=== PATIENT | male | born 1995 | race Caucasian/White ===

== ENCOUNTER 2021-06-22 13:37 | Inpatient (IN) | payer OTHER ==
[2021-06-22] MEDS ORDERED: MENTHOL/PHENOL 1 EACH UD MM PRN (16:11)
[2021-06-22] MEDS ORDERED: BISMUTH SUBSALICYLATE 524 MG/30 ML PO PRN (16:11)
[2021-06-22] MEDS ORDERED: MAG HYDROX/AL HYDROX/SIMETH 30 ML UNIT-DOSE CUP PO PRN (16:11)
[2021-06-22] MEDS ORDERED: NICOTINE 10 MG CARTRIDGE (INHALER) IH PRN (16:11)
[2021-06-22] MEDS ORDERED: MAGNESIUM HYDROX 2400MG/30ML ORAL SUSPENSION 30 ML CUP PO PRN (16:11)
[2021-06-22] MEDS ORDERED: IBUPROFEN 400 MG TABLET (FP) PO PRN (16:11)
[2021-06-22] MEDS ORDERED: MAGNESIUM CITRATE 300 ML BOTTLE PO PRN (16:11)
[2021-06-22] MEDS ORDERED: ONDANSETRON *ODT* 4 MG TABLET SL PRN (16:11)
[2021-06-22] MEDS ORDERED: ACETAMINOPHEN 325 MG TABLET (FP) PO PRN (16:11)
[2021-06-22] MEDS: PRENATAL VITAMINS W/ FOLIC ACID TABLET (FP) PO SCH (18:46)
[2021-06-22] MEDS: hydrOXYzine PAMOATE 25 MG CAPSULE (FP) PO SCH ×2 (18:46→23:25)
[2021-06-22] MEDS: NICOTINE 14 MG/24 HOURS TOPICAL PATCH TD SCH (18:47)
[2021-06-22] MEDS: MELATONIN 5 MG TABLETS PO SCH (23:24)
[2021-06-22] MEDS: THIAMINE HCL 100 MG TABLET (FP) PO SCH (23:25)
[2021-06-23] MEDS: hydrOXYzine PAMOATE 25 MG CAPSULE (FP) PO SCH ×6 (06:22→22:33)
[2021-06-23] MEDS: methaDONE HCL 40 MG DISPERSABLE TABLET PO SCH (10:00)
[2021-06-23] MEDS: PRENATAL VITAMINS W/ FOLIC ACID TABLET (FP) PO SCH (10:01)
[2021-06-23] MEDS: METOPROLOL TARTRATE 25 MG TABLET (FP) PO SCH (10:01)
[2021-06-23] MEDS: diazePAM 5 MG TABLET PO SCH ×3 (10:01→22:32)
[2021-06-23] MEDS: NICOTINE 14 MG/24 HOURS TOPICAL PATCH TD SCH (10:04)
[2021-06-23 12:35] LABS: ALBUMIN 3.8 g/dl (3.4-5.0); BLOOD UREA NITROGEN 13.5 mg/dL (7-18); CALCIUM 9.1 mg/dL (8.5-10.1)
[2021-06-23 12:36] LABS: HEMATOCRIT 37.5 % (35.4-49); HEMOGLOBIN 12.8 GM/dL (11.7-16.9); MCH 30.2 pg (25.7-33.7); MCHC 34.2 g/dl (32.0-35.9); MEAN CELL VOLUME 88.6 fl (80-96); MEAN PLT VOLUME 8.4 fl (7.5-11.1); PLATELET COUNT 274 10^3/uL (134-434); RBC 4.24 M/mm3 (4.00-5.60); RDW 14.1 % (11.9-15.9); WHITE BLOOD COUNT 8.6 K/mm3 (4.0-10.0)
[2021-06-23 12:38] LABS: CREATININE 0.9 mg/dL (0.55-1.3)
[2021-06-23 12:39] LABS: BILIRUBIN,TOTAL 0.4 mg/dL (0.2-1); TOT PROT 7.1 g/dl (6.4-8.2)
[2021-06-23] MEDS: LISINOPRIL 20 MG TABLET PO SCH (13:03)
[2021-06-23] MEDS: FLUoxetine HCL 20 MG CAPSULE PO SCH (13:03)
[2021-06-23 13:27] LABS: HIV INTERPRETATION NEGATIVE (NEGATIVE)
[2021-06-23] MEDS ORDERED: EMTRICITABINE 200MG/TENOFOVIR 300MG PO SCH (19:15)
[2021-06-23] MEDS: METHOCARBAMOL 500 MG TABLET PO PRN (22:33)
[2021-06-23] MEDS: MELATONIN 5 MG TABLETS PO SCH (22:33)
[2021-06-23] MEDS: THIAMINE HCL 100 MG TABLET (FP) PO SCH (22:33)
[2021-06-23] MEDS: EMTRICITABINE/TENOFOV ALAFENAM (DESCOVY) TABLET PO SCH (23:41)
[2021-06-24] MEDS: diazePAM 5 MG TABLET PO SCH ×4 (05:19→22:32)
[2021-06-24] MEDS: methaDONE HCL 40 MG DISPERSABLE TABLET PO SCH (05:20)
[2021-06-24] MEDS: hydrOXYzine PAMOATE 25 MG CAPSULE (FP) PO SCH ×5 (05:22→22:32)
[2021-06-24] MEDS: METOPROLOL TARTRATE 25 MG TABLET (FP) PO SCH (10:14)
[2021-06-24] MEDS: EMTRICITABINE/TENOFOV ALAFENAM (DESCOVY) TABLET PO SCH (10:14)
[2021-06-24] MEDS: PRENATAL VITAMINS W/ FOLIC ACID TABLET (FP) PO SCH (10:15)
[2021-06-24] MEDS: LISINOPRIL 20 MG TABLET PO SCH (10:15)
[2021-06-24] MEDS: NICOTINE 14 MG/24 HOURS TOPICAL PATCH TD SCH (10:15)
[2021-06-24] MEDS: FLUoxetine HCL 20 MG CAPSULE PO SCH (10:15)
[2021-06-24] MEDS: MELATONIN 5 MG TABLETS PO SCH (22:32)
[2021-06-24] MEDS: THIAMINE HCL 100 MG TABLET (FP) PO SCH (22:32)
[2021-06-25] MEDS: diazePAM 5 MG TABLET PO SCH ×3 (05:17→22:34)
[2021-06-25] MEDS: hydrOXYzine PAMOATE 25 MG CAPSULE (FP) PO SCH ×6 (05:17→22:34)
[2021-06-25] MEDS: methaDONE HCL 40 MG DISPERSABLE TABLET PO SCH (05:18)
[2021-06-25] MEDS: FLUoxetine HCL 20 MG CAPSULE PO SCH (10:25)
[2021-06-25] MEDS: LISINOPRIL 20 MG TABLET PO SCH (10:25)
[2021-06-25] MEDS: METOPROLOL TARTRATE 25 MG TABLET (FP) PO SCH (10:25)
[2021-06-25] MEDS: EMTRICITABINE/TENOFOV ALAFENAM (DESCOVY) TABLET PO SCH (10:25)
[2021-06-25] MEDS: NICOTINE 14 MG/24 HOURS TOPICAL PATCH TD SCH (10:26)
[2021-06-25] MEDS: diazePAM 5 MG TABLET PO PRN ×2 (10:26→18:40)
[2021-06-25] MEDS: PRENATAL VITAMINS W/ FOLIC ACID TABLET (FP) PO SCH (10:26)
[2021-06-25] MEDS: THIAMINE HCL 100 MG TABLET (FP) PO SCH (22:34)
[2021-06-25] MEDS: MELATONIN 5 MG TABLETS PO SCH (22:34)
[2021-06-26] MEDS: methaDONE HCL 40 MG DISPERSABLE TABLET PO SCH (05:37)
[2021-06-26] MEDS: diazePAM 5 MG TABLET PO SCH ×2 (05:39→18:16)
[2021-06-26] MEDS: hydrOXYzine PAMOATE 25 MG CAPSULE (FP) PO SCH ×6 (07:21→23:13)
[2021-06-26] MEDS: EMTRICITABINE/TENOFOV ALAFENAM (DESCOVY) TABLET PO SCH (10:05)
[2021-06-26] MEDS: PRENATAL VITAMINS W/ FOLIC ACID TABLET (FP) PO SCH (10:06)
[2021-06-26] MEDS: NICOTINE 14 MG/24 HOURS TOPICAL PATCH TD SCH (10:06)
[2021-06-26] MEDS: METOPROLOL TARTRATE 25 MG TABLET (FP) PO SCH (10:06)
[2021-06-26] MEDS: LISINOPRIL 20 MG TABLET PO SCH (10:07)
[2021-06-26] MEDS: FLUoxetine HCL 20 MG CAPSULE PO SCH (10:08)
[2021-06-26] MEDS: ACETAMINOPHEN 325 MG TABLET (FP) PO PRN (15:19)
[2021-06-26] MEDS: METHOCARBAMOL 500 MG TABLET PO PRN (18:15)
[2021-06-26] MEDS: THIAMINE HCL 100 MG TABLET (FP) PO SCH (22:30)
[2021-06-26] MEDS: MELATONIN 5 MG TABLETS PO SCH ×2 (22:30→23:15)
[2021-06-27] MEDS: methaDONE HCL 40 MG DISPERSABLE TABLET PO SCH (05:44)
[2021-06-27] MEDS: hydrOXYzine PAMOATE 25 MG CAPSULE (FP) PO SCH ×2 (05:45→10:23)
[2021-06-27] MEDS ORDERED: diazePAM 5 MG TABLET PO ONE (06:00)
[2021-06-27 08:52] VITALS: BP 123/71; PULSE 77; TEMP 96.8
[2021-06-27] MEDS: NICOTINE 14 MG/24 HOURS TOPICAL PATCH TD SCH (10:22)
[2021-06-27] MEDS: PRENATAL VITAMINS W/ FOLIC ACID TABLET (FP) PO SCH (10:22)
[2021-06-27] MEDS: METOPROLOL TARTRATE 25 MG TABLET (FP) PO SCH (10:22)
[2021-06-27] MEDS: LISINOPRIL 20 MG TABLET PO SCH (10:23)
[2021-06-27] MEDS: METHOCARBAMOL 500 MG TABLET PO PRN (10:23)
[2021-06-27] MEDS: FLUoxetine HCL 20 MG CAPSULE PO SCH (10:23)
[2021-06-27] MEDS: EMTRICITABINE/TENOFOV ALAFENAM (DESCOVY) TABLET PO SCH (10:24)
[2021-06-27] MEDS: ACETAMINOPHEN 325 MG TABLET (FP) PO PRN (10:45)
== END 2021-06-27 11:38 | disposition other institution (70) | DRG 773 ==
LOC: YASAS 13:37 → Y3N 17:33
PROVIDERS: ADMIT Allergy & Immunology; ATTEND Allergy & Immunology
PROC: HZ2ZZZZ Detoxification Services for Substance Abuse Treatment (ICD-10-PCS; principal; 2021-06-22)
DX: F10.230 Alcohol dependence with withdrawal, uncomplicated (principal); F11.20 Opioid dependence, uncomplicated; F14.20 Cocaine dependence, uncomplicated; F13.20 Sedative, hypnotic or anxiolytic dependence, uncomplicated; F17.210 Nicotine dependence, cigarettes, uncomplicated; F19.24 Other psychoactive substance dependence with psychoactive substance-induced mood disorder; F41.9 Anxiety disorder, unspecified; F32.9 Major depressive disorder, single episode, unspecified; F90.9 Attention-deficit hyperactivity disorder, unspecified type; I10 Essential (primary) hypertension; B18.2 Chronic viral hepatitis C; Z89.021 Acquired absence of right finger(s); Z91.14 Patient's other noncompliance with medication regimen
CPT/HCPCS: 36415; 80053; 85027; 86780; 87389; C9803; U0003; U0005

== ENCOUNTER 2021-06-27 11:41 | Inpatient (IN) | payer OTHER ==
[2021-06-27] MEDS ORDERED: ACETAMINOPHEN 325 MG TABLET (FP) PO PRN (13:51)
[2021-06-27] MEDS ORDERED: LOPERAMIDE HCL 2 MG CAPSULE PO PRN (13:51)
[2021-06-27] MEDS ORDERED: MAGNESIUM CITRATE 300 ML BOTTLE PO PRN (13:51)
[2021-06-27] MEDS ORDERED: MAG HYDROX/AL HYDROX/SIMETH 30 ML UNIT-DOSE CUP PO PRN (13:51)
[2021-06-27] MEDS ORDERED: MENTHOL/PHENOL 1 EACH UD MM PRN (13:51)
[2021-06-27] MEDS ORDERED: MAGNESIUM HYDROX 2400MG/30ML ORAL SUSPENSION 30 ML CUP PO PRN (13:51)
[2021-06-27] MEDS ORDERED: guaiFENesin 200 MG/10 ML 10 ML UNIT-DOSE CUPS PO PRN (13:51)
[2021-06-27] MEDS ORDERED: P-EPHED 60MG/TRIPROLIDI 2.5MG TABLET PO PRN (13:51)
[2021-06-27] MEDS: hydrOXYzine PAMOATE 25 MG CAPSULE (FP) PO PRN ×2 (18:07→21:36)
[2021-06-27] MEDS: THIAMINE HCL 100 MG TABLET (FP) PO SCH (21:35)
[2021-06-27] MEDS: MELATONIN 5 MG TABLETS PO SCH (21:35)
[2021-06-27] MEDS: IBUPROFEN 400 MG TABLET (FP) PO PRN (21:36)
[2021-06-28] MEDS: methaDONE HCL 40 MG DISPERSABLE TABLET PO SCH (06:45)
[2021-06-28] MEDS: FLUoxetine HCL 20 MG CAPSULE PO SCH (10:12)
[2021-06-28] MEDS: EMTRICITABINE/TENOFOV ALAFENAM (DESCOVY) TABLET PO SCH (10:12)
[2021-06-28] MEDS: PRENATAL VITAMINS W/ FOLIC ACID TABLET (FP) PO SCH (10:12)
[2021-06-28] MEDS: hydrOXYzine PAMOATE 25 MG CAPSULE (FP) PO PRN ×3 (10:13→21:42)
[2021-06-28] MEDS: LISINOPRIL 20 MG TABLET PO SCH (10:14)
[2021-06-28] MEDS: NICOTINE 14 MG/24 HOURS TOPICAL PATCH TD SCH (10:15)
[2021-06-28] MEDS: METOPROLOL TARTRATE 25 MG TABLET (FP) PO SCH (10:15)
[2021-06-28] MEDS: IBUPROFEN 400 MG TABLET (FP) PO PRN (20:03)
[2021-06-28] MEDS: THIAMINE HCL 100 MG TABLET (FP) PO SCH (21:42)
[2021-06-28] MEDS: MELATONIN 5 MG TABLETS PO SCH (21:42)
[2021-06-29] MEDS: methaDONE HCL 40 MG DISPERSABLE TABLET PO SCH (06:15)
[2021-06-29 07:09] VITALS: TEMP 97.1
[2021-06-29] MEDS ORDERED: hydrOXYzine PAMOATE 50 MG CAPSULE (FP) PO PRN (09:10)
[2021-06-29] MEDS ORDERED: busPIRone HCL 10 MG TABLET (FP) PO PRN (09:10)
[2021-06-29] MEDS: PRENATAL VITAMINS W/ FOLIC ACID TABLET (FP) PO SCH (10:29)
[2021-06-29] MEDS: METOPROLOL TARTRATE 25 MG TABLET (FP) PO SCH (10:30)
[2021-06-29] MEDS: FLUoxetine HCL 20 MG CAPSULE PO SCH (10:30)
[2021-06-29] MEDS: EMTRICITABINE/TENOFOV ALAFENAM (DESCOVY) TABLET PO SCH (10:30)
[2021-06-29] MEDS: LISINOPRIL 20 MG TABLET PO SCH (10:30)
[2021-06-29] MEDS: NICOTINE 14 MG/24 HOURS TOPICAL PATCH TD SCH (10:31)
[2021-06-29 12:48] VITALS: BP 126/63; PULSE 72
[2021-06-29] MEDS ORDERED: SUVOREXANT 10 MG TABLET PO PRN (22:00)
== END 2021-06-29 15:35 | disposition left against medical advice (07) | DRG 770 ==
LOC: YASAS 11:41 → Y5N 11:42 → Y3W 12:03
PROVIDERS: ADMIT Allergy & Immunology; ATTEND Allergy & Immunology
PROC: HZ42ZZZ Group Counseling for Substance Abuse Treatment, Cognitive-Behavioral (ICD-10-PCS; principal; 2021-06-27)
DX: F10.20 Alcohol dependence, uncomplicated (principal); F11.20 Opioid dependence, uncomplicated; F13.20 Sedative, hypnotic or anxiolytic dependence, uncomplicated; F14.20 Cocaine dependence, uncomplicated; F17.210 Nicotine dependence, cigarettes, uncomplicated; F19.282 Other psychoactive substance dependence with psychoactive substance-induced sleep disorder; F19.24 Other psychoactive substance dependence with psychoactive substance-induced mood disorder; F41.9 Anxiety disorder, unspecified; F90.9 Attention-deficit hyperactivity disorder, unspecified type; B19.20 Unspecified viral hepatitis C without hepatic coma; Z89.021 Acquired absence of right finger(s)

== ENCOUNTER 2024-02-27 16:36 | Inpatient (IN) | payer BC ==
[2024-02-27 18:45] VITALS: BMI 20.7
[2024-02-27] MEDS ORDERED: DICYCLOMINE HCL 10 MG CAPSULE PO PRN (19:34)
[2024-02-27] MEDS ORDERED: BENZOCAINE/MENTHOL (CHLORASEPTIC ) LOZENGE MM PRN (19:34)
[2024-02-27] MEDS ORDERED: NALOXONE HCL 0.4 MG/ML VIAL IM PRN (19:34)
[2024-02-27] MEDS ORDERED: NALOXONE HCL (KLOXXADO) 8 MG SPRAY NS PRN (19:34)
[2024-02-27] MEDS ORDERED: IBUPROFEN 400 MG TABLET (FP) PO PRN (19:34)
[2024-02-27] MEDS ORDERED: IBUPROFEN 600 MG TABLET (FP) PO PRN (19:34)
[2024-02-27] MEDS ORDERED: guaiFENesin 600 MG TABLET.ER (FP) PO PRN (19:34)
[2024-02-27] MEDS ORDERED: BENZONATATE 200 MG CAPSULE PO PRN (19:34)
[2024-02-27] MEDS ORDERED: MAG HYDROX/AL HYDROX/SIMETH 30 ML UNIT-DOSE CUP PO PRN (19:34)
[2024-02-27] MEDS ORDERED: POLYETHYLENE GLYCOL (HEALTHYLAX) 3350 17 GM PACKET PO PRN (19:34)
[2024-02-27] MEDS ORDERED: NICOTINE POLACRILEX 2 MG GUM BUC PRN (19:34)
[2024-02-27] MEDS ORDERED: LOPERAMIDE HCL 2 MG CAPSULE PO PRN (19:34)
[2024-02-27] MEDS ORDERED: BISMUTH SUBSALICYLATE 524 MG/30 ML PO PRN (19:34)
[2024-02-27] MEDS ORDERED: MAGNESIUM HYDROX 2400MG/30ML ORAL SUSPENSION 30 ML CUP PO PRN (19:34)
[2024-02-27] MEDS ORDERED: P-EPHED 60MG/TRIPROLIDI 2.5MG TABLET PO PRN (19:34)
[2024-02-27] MEDS ORDERED: ACETAMINOPHEN 325 MG TABLET (FP) PO PRN (19:34)
[2024-02-27] MEDS ORDERED: METHOCARBAMOL 500 MG TABLET ONE (19:55)
[2024-02-27] MEDS: METHOCARBAMOL 500 MG TABLET PO PRN (19:57)
[2024-02-27] MEDS: diazePAM 5 MG TABLET PO PRN (20:39)
[2024-02-27] MEDS: THIAMINE 100 MG TABLET PO SCH (22:22)
[2024-02-27] MEDS: hydrOXYzine PAMOATE 25 MG CAPSULE (FP) PO PRN (22:22)
[2024-02-27] MEDS: MELATONIN 5 MG TABLETS PO SCH (22:23)
[2024-02-27] MEDS: diazePAM 5 MG TABLET PO SCH (23:09)
[2024-02-28] MEDS ORDERED: methaDONE HCL 40 MG DISPERSABLE TABLET PO SCH (09:45)
[2024-02-28] MEDS: PRENATAL VITAMINS W/ FOLIC ACID TABLET (FP) PO SCH (10:02)
[2024-02-29] MEDS: diazePAM 5 MG TABLET PO SCH (05:14)
[2024-02-29] MEDS ORDERED: FLUoxetine HCL 10 MG TABLET PO SCH (10:00)
[2024-02-29] MEDS: FLUoxetine HCL 20 MG CAPSULE PO SCH (10:20)
[2024-02-29] MEDS: ONDANSETRON *ODT* 4 MG TABLET SL PRN (19:00)
[2024-03-01] MEDS: diazePAM 5 MG TABLET PO SCH (05:25)
[2024-03-01 07:02] VITALS: RESP 16
[2024-03-02] MEDS: diazePAM 5 MG TABLET PO ONE (06:05)
[2024-03-02 13:03] VITALS: BP 110/68; PULSE 77; TEMP 97.6
[2024-03-03] MEDS ORDERED: SACUBITRIL/VALSARTAN 24 MG-26 MG TABLET PO SCH (10:00)
[2024-03-03] MEDS ORDERED: SPIRONOLACTONE 25 MG TABLET PO SCH (10:00)
[2024-03-03] MEDS ORDERED: METOPROLOL TARTRATE 25 MG TABLET (FP) PO SCH (10:00)
== END 2024-03-02 13:35 | disposition other institution (70) | DRG 773 ==
LOC: YASAS 16:36 → Y6N 19:55
PROVIDERS: ADMIT Allergy & Immunology; ATTEND Surgery
PROC: HZ2ZZZZ Detoxification Services for Substance Abuse Treatment (ICD-10-PCS; principal; 2024-02-27)
DX: F10.230 Alcohol dependence with withdrawal, uncomplicated (principal); F11.20 Opioid dependence, uncomplicated; F13.20 Sedative, hypnotic or anxiolytic dependence, uncomplicated; F14.20 Cocaine dependence, uncomplicated; F17.210 Nicotine dependence, cigarettes, uncomplicated; F19.24 Other psychoactive substance dependence with psychoactive substance-induced mood disorder; F41.9 Anxiety disorder, unspecified; F32.A Depression, unspecified; B18.2 Chronic viral hepatitis C
CPT/HCPCS: 87811; 93005; 93010; Q0162

== ENCOUNTER 2024-03-02 13:35 | Inpatient (IN) | payer BC ==
[2024-03-02] MEDS ORDERED: NALOXONE (NYS OPIOID OVERDOSE PROGRAM) 4 MG/0.1 ML SPRAY NS PRN (15:33)
[2024-03-02] MEDS ORDERED: ACETAMINOPHEN 325 MG TABLET (FP) PO PRN ×2 (15:33→15:34)
[2024-03-02] MEDS ORDERED: BENZOCAINE/MENTHOL (CHLORASEPTIC ) LOZENGE MM PRN ×2 (15:33→15:34)
[2024-03-02] MEDS ORDERED: LOPERAMIDE HCL 2 MG CAPSULE PO PRN ×2 (15:33→15:34)
[2024-03-02] MEDS ORDERED: POLYETHYLENE GLYCOL (HEALTHYLAX) 3350 17 GM PACKET PO PRN ×2 (15:33→15:34)
[2024-03-02] MEDS ORDERED: MAGNESIUM HYDROX 2400MG/30ML ORAL SUSPENSION 30 ML CUP PO PRN ×2 (15:33→15:34)
[2024-03-02] MEDS ORDERED: hydrOXYzine PAMOATE 25 MG CAPSULE (FP) PO PRN (15:33)
[2024-03-02] MEDS ORDERED: IBUPROFEN 600 MG TABLET (FP) PO PRN ×2 (15:33→15:34)
[2024-03-02] MEDS ORDERED: MAG HYDROX/AL HYDROX/SIMETH 30 ML UNIT-DOSE CUP PO PRN ×2 (15:33→15:34)
[2024-03-02] MEDS ORDERED: NALOXONE HCL 0.4 MG/ML VIAL IVPUSH PRN (15:33)
[2024-03-02] MEDS ORDERED: IBUPROFEN 400 MG TABLET (FP) PO PRN (15:33)
[2024-03-02] MEDS ORDERED: guaiFENesin 600 MG TABLET.ER (FP) PO PRN ×2 (15:33→15:34)
[2024-03-02] MEDS ORDERED: BENZONATATE 200 MG CAPSULE PO PRN ×2 (15:33→15:34)
[2024-03-02] MEDS ORDERED: NALOXONE HCL 0.4 MG/ML VIAL IM PRN (15:34)
[2024-03-02] MEDS ORDERED: NALOXONE HCL (KLOXXADO) 8 MG SPRAY NS PRN (15:34)
[2024-03-02] MEDS ORDERED: NICOTINE POLACRILEX 2 MG GUM BUC PRN (15:40)
[2024-03-02] MEDS ORDERED: NICOTINE 7 MG/24 HOURS TOPICAL PATCH TD PRN (15:40)
[2024-03-02] MEDS ORDERED: TUBERCULIN PPD 5 TU/0.1ML VIAL ID ONE (16:55)
[2024-03-02] MEDS: MELATONIN 5 MG TABLETS PO SCH (21:05)
[2024-03-02] MEDS: hydrOXYzine PAMOATE 25 MG CAPSULE (FP) PO PRN (21:06)
[2024-03-02] MEDS: THIAMINE 100 MG TABLET PO SCH (21:06)
[2024-03-02] MEDS ORDERED: MELATONIN 5 MG TABLETS PO SCH (22:00)
[2024-03-02] MEDS ORDERED: THIAMINE 100 MG TABLET PO SCH (22:00)
[2024-03-03] MEDS ORDERED: methaDONE HCL 40 MG DISPERSABLE TABLET PO SCH (06:00)
[2024-03-03] MEDS ORDERED: PATIENT'S OWN MEDICATION (NON-FORMULARY) (Fluoxetine Hcl [Prozac] 40 MG Capsule) PO SCH (10:00)
[2024-03-03] MEDS ORDERED: PRENATAL VITAMINS W/ FOLIC ACID TABLET (FP) PO SCH (10:00)
[2024-03-03] MEDS: DEXTROAMPHETAMINE/AMPHETAMINE 10 MG CAP.ER.24H PO SCH (10:00)
[2024-03-03] MEDS: METOPROLOL TARTRATE 25 MG TABLET (FP) PO SCH (10:01)
[2024-03-03] MEDS: PRENATAL VITAMINS W/ FOLIC ACID TABLET (FP) PO SCH (10:01)
[2024-03-03] MEDS: SPIRONOLACTONE 25 MG TABLET PO SCH (10:01)
[2024-03-03] MEDS: clonazePAM 0.5 MG ODT TABLETS SL SCH (10:01)
[2024-03-03] MEDS: FLUoxetine HCL 20 MG CAPSULE PO SCH (10:06)
[2024-03-03] MEDS: SACUBITRIL/VALSARTAN 24 MG-26 MG TABLET PO SCH ×2 (11:24→21:33)
[2024-03-03] MEDS: EMPAGLIFLOZIN (JARDIANCE) 10 MG TABLET PO SCH (11:24)
[2024-03-03] MEDS: METHOCARBAMOL 500 MG TABLET PO PRN (16:03)
[2024-03-03 17:44] LABS: HIV INTERPRETATION NEGATIVE (NEGATIVE)
[2024-03-04] MEDS: clonazePAM 0.5 MG ODT TABLETS SL SCH (18:26)
[2024-03-05 10:20] LABS: BASO % 0.3 % (0-2.0); EOS % 2.7 % (0-4.5); HEMATOCRIT 43.4 % (35.4-49); HEMOGLOBIN 14.4 GM/dL (11.7-16.9); LYMPH % 42.9 % (8-40); MCH 28.6 pg (25.7-33.7); MCHC 33.2 g/dl (32.0-35.9); MEAN CELL VOLUME 86.1 fl (80-96); MEAN PLT VOLUME 8.1 fl (7.5-11.1); MONO % 10.5 % (3.8-10.2); NEUT % 43.6 % (42.8-82.8); PLATELET COUNT 298 10^3/uL (134-434); RBC 5.04 M/mm3 (4.00-5.60); RDW 14.1 % (11.9-15.9); WHITE BLOOD COUNT 6.9 K/mm3 (4.0-10.0)
[2024-03-05 10:21] LABS: PROTHROMBIN TIME (PATIENT) 11.3 SEC (9.7-13.0)
[2024-03-05 10:25] LABS: POTASSIUM 4.9 mmol/L (3.5-5.1)
[2024-03-05 10:35] LABS: ALBUMIN 4.2 g/dl (3.4-5.0)
[2024-03-05 10:36] LABS: CALCIUM 9.5 mg/dL (8.5-10.1)
[2024-03-05 10:37] LABS: MAGNESIUM 2.3 mg/dL (1.8-2.4)
[2024-03-05 10:40] LABS: CREATININE 0.8 mg/dL (0.55-1.3)
[2024-03-05 10:41] LABS: BILIRUBIN,TOTAL 0.4 mg/dL (0.2-1); TOT PROT 8.1 g/dl (6.4-8.2)
[2024-03-06] MEDS: LACTULOSE 20 GM/30 ML UDC (FOR ORAL USE ONLY) PO SCH (14:16)
[2024-03-06] MEDS: SUVOREXANT 5 MG TABLET PO PRN (22:15)
[2024-03-10] MEDS: SUVOREXANT 10 MG TABLET PO PRN (21:45)
[2024-03-11] MEDS: DEXTROAMPHETAMINE/AMPHETAMINE 10 MG CAP.ER.24H PO SCH (09:50)
[2024-03-11] MEDS: RIFAXIMIN 550 MG TABLET PO SCH (11:49)
[2024-03-12] MEDS ORDERED: methaDONE HCL 40 MG DISPERSABLE TABLET PO SCH (06:00)
[2024-03-13] MEDS ORDERED: methaDONE HCL 40 MG DISPERSABLE TABLET PO SCH (06:00)
[2024-03-13] MEDS: SUVOREXANT 10 MG TABLET PO PRN (22:25)
[2024-03-16] MEDS: SUVOREXANT 10 MG TABLET PO PRN (21:10)
[2024-03-17] MEDS: methaDONE HCL 40 MG DISPERSABLE TABLET PO SCH (06:07)
[2024-03-18] MEDS: IBUPROFEN 400 MG TABLET (FP) PO PRN (09:03)
[2024-03-19] MEDS ORDERED: AMMONIUM LACTATE 12% LOTION 225 GM BOTTLE TP PRN (11:51)
[2024-03-19] MEDS: LACTULOSE 20 GM/30 ML UDC (FOR ORAL USE ONLY) PO SCH (13:42)
[2024-03-20] MEDS ORDERED: methaDONE HCL 40 MG DISPERSABLE TABLET PO SCH (06:00)
[2024-03-21] MEDS: SUVOREXANT 10 MG TABLET PO PRN (21:21)
[2024-03-23] MEDS: SUVOREXANT 10 MG TABLET PO PRN (21:12)
[2024-03-24] MEDS: DEXTROAMPHETAMINE/AMPHETAMINE 10 MG CAP.ER.24H PO SCH (10:06)
[2024-03-24 18:02] VITALS: RESP 16
[2024-03-25 06:39] VITALS: BP 120/74; PULSE 82; TEMP 97.1
== END 2024-03-25 08:55 | disposition home or self-care (01) | DRG 772 ==
LOC: YASAS 13:35 → Y3E 13:36
PROVIDERS: ADMIT Allergy & Immunology; ATTEND Psychiatry & Neurology Pain Medicine
PROC: HZ42ZZZ Group Counseling for Substance Abuse Treatment, Cognitive-Behavioral (ICD-10-PCS; principal; 2024-03-02)
DX: F10.20 Alcohol dependence, uncomplicated (principal); F11.20 Opioid dependence, uncomplicated; F14.20 Cocaine dependence, uncomplicated; F13.20 Sedative, hypnotic or anxiolytic dependence, uncomplicated; F17.210 Nicotine dependence, cigarettes, uncomplicated; F41.9 Anxiety disorder, unspecified; F32.A Depression, unspecified; I50.9 Heart failure, unspecified; Z86.79 Personal history of other diseases of the circulatory system
CPT/HCPCS: 36415; 80053; 82140; 83735; 85025; 85610; 86803; 87389; 87522

== ENCOUNTER 2024-05-26 13:05 | Inpatient (IN) | payer BC ==
[2024-05-26 15:19] VITALS: BMI 23.1
[2024-05-26] MEDS ORDERED: DICYCLOMINE HCL 10 MG CAPSULE PO PRN (17:01)
[2024-05-26] MEDS ORDERED: NICOTINE POLACRILEX 4 MG GUM BUC PRN (17:01)
[2024-05-26] MEDS ORDERED: ACETAMINOPHEN 325 MG TABLET (FP) PO PRN (17:01)
[2024-05-26] MEDS ORDERED: guaiFENesin/D-METHORPHAN HB 10 ML UNIT-DOSE CUPS PO PRN (17:01)
[2024-05-26] MEDS ORDERED: MAG HYDROX/AL HYDROX/SIMETH 30 ML UNIT-DOSE CUP PO PRN (17:01)
[2024-05-26] MEDS ORDERED: diazePAM 5 MG TABLET ONE (17:54)
[2024-05-26] MEDS: diazePAM 5 MG TABLET PO PRN (17:56)
[2024-05-26] MEDS: hydrOXYzine PAMOATE 25 MG CAPSULE (FP) PO PRN (18:54)
[2024-05-26] MEDS: METHOCARBAMOL 500 MG TABLET PO PRN (18:54)
[2024-05-26] MEDS: ONDANSETRON *ODT* 4 MG TABLET SL PRN (18:54)
[2024-05-26] MEDS: NALOXONE (NARCAN) HCL 4 MG/0.1 ML SPRAY NS ONE (21:16)
[2024-05-26] MEDS: IBUPROFEN 400 MG TABLET (FP) PO PRN (22:33)
[2024-05-26] MEDS: THIAMINE 100 MG TABLET PO SCH (22:33)
[2024-05-26] MEDS: diazePAM 5 MG TABLET PO SCH (22:56)
[2024-05-26] MEDS: SACUBITRIL/VALSARTAN 24 MG-26 MG TABLET PO SCH (22:59)
[2024-05-27] MEDS: PRENATAL VITAMINS W/ FOLIC ACID TABLET (FP) PO SCH (09:11)
[2024-05-27] MEDS: amLODIPine BESYLATE 10 MG TABLET (FP) PO SCH (09:11)
[2024-05-27] MEDS: SPIRONOLACTONE 25 MG TABLET PO SCH (09:11)
[2024-05-27] MEDS: NICOTINE 14 MG/24 HOURS TOPICAL PATCH TD SCH (09:11)
[2024-05-27] MEDS: methaDONE HCL 40 MG DISPERSABLE TABLET PO ONE (09:11)
[2024-05-27] MEDS: EMPAGLIFLOZIN (JARDIANCE) 10 MG TABLET PO SCH (10:10)
[2024-05-27] MEDS ORDERED: METOPROLOL TARTRATE 25 MG TABLET (FP) PO SCH (16:30)
[2024-05-27] MEDS: METOPROLOL TARTRATE 25 MG TABLET (FP) PO SCH (16:56)
[2024-05-28] MEDS: methaDONE HCL 40 MG DISPERSABLE TABLET PO SCH (05:58)
[2024-05-28] MEDS: diazePAM 5 MG TABLET PO SCH (06:03)
[2024-05-28] MEDS ORDERED: DEXTROAMPHETAMINE/AMPHETAMINE 10 MG CAP.ER.24H PO SCH (10:00)
[2024-05-28] MEDS: FLUoxetine HCL 20 MG CAPSULE PO SCH (10:04)
[2024-05-28] MEDS: DEXTROAMPHETAMINE/AMPHETAMINE 10 MG CAP.ER.24H PO SCH (10:53)
[2024-05-28] MEDS: LOPERAMIDE HCL 2 MG CAPSULE PO PRN (19:52)
[2024-05-29] MEDS: diazePAM 5 MG TABLET PO SCH (06:34)
[2024-05-29] MEDS: diazePAM 5 MG TABLET PO PRN (21:39)
[2024-05-30] MEDS: diazePAM 5 MG TABLET PO ONE (05:45)
[2024-05-30] MEDS: diazePAM 5 MG TABLET PO PRN (16:56)
[2024-05-31 09:08] VITALS: BP 126/67; PULSE 88; RESP 18; TEMP 97.5
[2024-06-01] MEDS ORDERED: DEXTROAMPHETAMINE/AMPHETAMINE 20 MG CAP.ER.24H PO SCH (10:00)
[2024-06-01] MEDS ORDERED: DEXTROAMPHETAMINE/AMPHETAMINE 10 MG CAP.ER.24H PO SCH ×2 (10:00)
== END 2024-05-31 12:20 | disposition other institution (70) | DRG 773 ==
LOC: YASAS 13:05 → Y6N 17:43
PROVIDERS: ADMIT Allergy & Immunology; ATTEND Family Medicine Addiction Medicine
PROC: HZ2ZZZZ Detoxification Services for Substance Abuse Treatment (ICD-10-PCS; principal; 2024-05-26)
DX: F10.230 Alcohol dependence with withdrawal, uncomplicated (principal); F13.230 Sedative, hypnotic or anxiolytic dependence with withdrawal, uncomplicated; F11.20 Opioid dependence, uncomplicated; F17.210 Nicotine dependence, cigarettes, uncomplicated; F19.282 Other psychoactive substance dependence with psychoactive substance-induced sleep disorder; F19.280 Other psychoactive substance dependence with psychoactive substance-induced anxiety disorder; F41.1 Generalized anxiety disorder; F32.9 Major depressive disorder, single episode, unspecified; F90.9 Attention-deficit hyperactivity disorder, unspecified type; I11.0 Hypertensive heart disease with heart failure; I50.9 Heart failure, unspecified; I07.1 Rheumatic tricuspid insufficiency; B18.2 Chronic viral hepatitis C; E11.9 Type 2 diabetes mellitus without complications; Z79.84 Long term (current) use of oral hypoglycemic drugs
CPT/HCPCS: 80305; 80307; 87811; 93005; 93010; Q0162

== ENCOUNTER 2024-05-31 09:30 | Inpatient (IN) | payer BC ==
[2024-05-31] MEDS ORDERED: NALOXONE (NARCAN) HCL 4 MG/0.1 ML SPRAY NS PRN ×2 (14:52→15:12)
[2024-05-31] MEDS ORDERED: MAG HYDROX/AL HYDROX/SIMETH 30 ML UNIT-DOSE CUP PO PRN (15:12)
[2024-05-31] MEDS ORDERED: NICOTINE POLACRILEX 2 MG GUM BUC PRN (15:12)
[2024-05-31] MEDS ORDERED: BENZONATATE 200 MG CAPSULE PO PRN (15:12)
[2024-05-31] MEDS ORDERED: IBUPROFEN 600 MG TABLET (FP) PO PRN (15:12)
[2024-05-31] MEDS ORDERED: NALOXONE HCL 0.4 MG/ML VIAL IM PRN (15:12)
[2024-05-31] MEDS ORDERED: guaiFENesin 600 MG TABLET.ER (FP) PO PRN (15:12)
[2024-05-31] MEDS ORDERED: MAGNESIUM HYDROX 2400MG/30ML ORAL SUSPENSION 30 ML CUP PO PRN (15:12)
[2024-05-31] MEDS ORDERED: POLYETHYLENE GLYCOL (HEALTHYLAX) 3350 17 GM PACKET PO PRN (15:12)
[2024-05-31] MEDS ORDERED: BENZOCAINE/MENTHOL (CHLORASEPTIC ) LOZENGE MM PRN (15:12)
[2024-05-31] MEDS ORDERED: NICOTINE POLACRILEX 2 MG LOZENGE BC PRN (15:12)
[2024-05-31] MEDS ORDERED: LOPERAMIDE HCL 2 MG CAPSULE PO PRN (15:12)
[2024-05-31] MEDS ORDERED: ACETAMINOPHEN 325 MG TABLET (FP) PO PRN (15:12)
[2024-05-31] MEDS ORDERED: IBUPROFEN 400 MG TABLET (FP) PO PRN (15:12)
[2024-05-31] MEDS: hydrOXYzine PAMOATE 25 MG CAPSULE (FP) PO PRN (15:59)
[2024-05-31] MEDS: methaDONE HCL 40 MG DISPERSABLE TABLET PO SCH (16:17)
[2024-05-31] MEDS: THIAMINE 100 MG TABLET PO SCH (21:09)
[2024-05-31] MEDS: SACUBITRIL/VALSARTAN 24 MG-26 MG TABLET PO SCH (21:09)
[2024-05-31] MEDS: MELATONIN 5 MG TABLETS PO SCH (21:09)
[2024-05-31] MEDS: clonazePAM 0.5 MG ODT TABLETS SL SCH (21:09)
[2024-06-01] MEDS ORDERED: methaDONE HCL 40 MG DISPERSABLE TABLET PO SCH (06:00)
[2024-06-01] MEDS: methaDONE HCL 40 MG DISPERSABLE TABLET PO ONE (07:58)
[2024-06-01] MEDS: DEXTROAMPHETAMINE/AMPHETAMINE 10 MG CAP.ER.24H PO SCH (09:43)
[2024-06-01] MEDS: FLUoxetine HCL 20 MG CAPSULE PO SCH (09:44)
[2024-06-01] MEDS: SPIRONOLACTONE 25 MG TABLET PO SCH (09:45)
[2024-06-01] MEDS: amLODIPine BESYLATE 10 MG TABLET (FP) PO SCH (09:45)
[2024-06-01] MEDS: METOPROLOL TARTRATE 25 MG TABLET (FP) PO SCH (09:45)
[2024-06-01] MEDS: PRENATAL VITAMINS W/ FOLIC ACID TABLET (FP) PO SCH ×2 (09:46)
[2024-06-01] MEDS: NICOTINE 14 MG/24 HOURS TOPICAL PATCH TD SCH (09:46)
[2024-06-01] MEDS: EMPAGLIFLOZIN (JARDIANCE) 10 MG TABLET PO SCH (10:26)
[2024-06-01] MEDS: TOLNAFTATE 1% CREAM 15 GM TUBE TP SCH (13:18)
[2024-06-01] MEDS: diphenhydrAMINE HCL 25 MG CAPSULE (FP) PO SCH (13:18)
[2024-06-02] MEDS: methaDONE HCL 40 MG DISPERSABLE TABLET PO SCH (05:16)
[2024-06-02] MEDS ORDERED: clonazePAM 1 MG ODT TABLETS SL SCH (10:00)
[2024-06-02] MEDS: clonazePAM 0.5 MG ODT TABLETS SL SCH (10:42)
[2024-06-03] MEDS: clonazePAM 0.5 MG ODT TABLETS SL SCH (10:45)
[2024-06-05] MEDS: KETOCONAZOLE 2 % SHAMPOO 120 ML BOTTLE TP SCH (14:59)
[2024-06-08 06:21] VITALS: BP 107/52; PULSE 81; RESP 18; TEMP 97.5
== END 2024-06-08 09:21 | disposition home or self-care (01) | DRG 772 ==
LOC: YASAS 09:30 → Y3NR 09:31 → Y3W 06-02 12:35
PROVIDERS: ADMIT Allergy & Immunology; ATTEND Psychiatry & Neurology Pain Medicine
PROC: HZ42ZZZ Group Counseling for Substance Abuse Treatment, Cognitive-Behavioral (ICD-10-PCS; principal; 2024-05-31)
DX: F10.20 Alcohol dependence, uncomplicated (principal); F11.10 Opioid abuse, uncomplicated; F14.20 Cocaine dependence, uncomplicated; F13.20 Sedative, hypnotic or anxiolytic dependence, uncomplicated; F17.210 Nicotine dependence, cigarettes, uncomplicated; F41.9 Anxiety disorder, unspecified; F32.A Depression, unspecified; F90.9 Attention-deficit hyperactivity disorder, unspecified type; B18.2 Chronic viral hepatitis C; I10 Essential (primary) hypertension; E11.9 Type 2 diabetes mellitus without complications; Z79.84 Long term (current) use of oral hypoglycemic drugs; L21.0 Seborrhea capitis
CPT/HCPCS: 82962